=== PATIENT | female | born 1975 ===

== ENCOUNTER → 2021-10-14 09:40 | Outpatient (CLI) | payer OTHER, SELFPAY ==
[2021-10-14 18:58] LABS: Cholesterol 239 mg/dL (140-199); HDL Cholesterol 79 mg/dL (40-60); LDL Cholesterol Calculated 149 mg/dL (<100); Triglycerides 57 mg/dL (35-150); VLDL Cholesterol Calculated 11 mg/dL (2-30)
[2021-10-14 19:11] LABS: Alanine Aminotransferase 19 IU/L (<35); Albumin 4.4 g/dL (3.5-5.0); Albumin Globulin Ratio 1.5 (1.0-2.8); Alkaline Phosphatase 28 U/L (38-126); Aspartate Aminotransferase 26 IU/L (14-36); BUN Creatinine Ratio 15.3 (6-22); Bilirubin Total 0.5 mg/dL (0.2-1.3); Blood Urea Nitrogen 11 mg/dL (7-17); Calcium 9.7 mg/dL (8.4-10.2); Carbon Dioxide 26 mmol/L (22-32); Chloride 106 mmol/L (98-107); Estimated Glomerular Filt Rate > 60.0 mL/min (>60); Globulin 2.9 g/dL (1.7-4.1); Glucose 91 mg/dL (70-100); HEMOLYSIS < 15 (0-50); Potassium 4.4 mmol/L (3.4-5.1); Sodium 138 mmol/L (137-145); Total Protein 7.3 g/dL (6.3-8.2)
[2021-10-14 19:13] LABS: Add Manual Diff / Slide Review NO; Basophils Absolute Auto 0 /uL (0-100); Basophils Percent Auto 0.8 % (0-2); Eosinophils Absolute Auto 100 /uL (0-450); Eosinophils Percent Auto 3.1 % (2-4); Hematocrit 41.1 % (36-46); Lymphocytes Absolute Auto 1800 /uL (1100-4500); Lymphocytes Percent Auto 43.3 % (25-40); Mean Corpuscular HGB Conc 34.2 % (30-36); Mean Corpuscular Hemoglobin 31.5 PG (26-34); Mean Corpuscular Volume 92.1 fL (80-100); Monocytes Absolute Auto 400 /uL (0-900); Monocytes Percent Auto 9.5 % (3-14); Neutrophils Absolute Auto 1800 /uL (1500-7000); Neutrophils Percent Auto 43.3 % (50-75); Platelet Count 315 X10^3/uL (150-400); Red Blood Cell Count 4.46 X10^6/uL (4.0-5.2); Red Cell Distribution Width 12.3 % (11.6-14.8)
[2021-10-14 19:16] LABS: Vitamin D 25 Hydroxy (D3) 58.3 ng/mL (30.0-100.0)
[2021-10-14 19:27] LABS: Free T3, Triiodothyronine Free 3.81 pg/mL (2.77-5.27)
[2021-10-14 19:41] LABS: TSH w/ Reflex to FT4 0.03 uIU/mL (0.47-4.68)
[2021-10-14 20:01] LABS: Vitamin B12 780 pg/mL (239-931)
[2021-10-14 20:53] LABS: Free T4, Direct Thyroxine 0.92 ng/dL (0.78-2.19)
== END ==
PROVIDERS: PCP Family Medicine; Visit Provider Physician Assistant
DX: R53.83 Other fatigue (principal); E03.9 Hypothyroidism, unspecified; Z13.220 Encounter for screening for lipoid disorders
CPT/HCPCS: 80053; 80061; 82306; 82607; 84439; 84443; 84481; 85025

== ENCOUNTER → 2021-12-08 09:07 | Outpatient (CLI) | payer OTHER, SELFPAY ==
[2021-12-08 19:56] LABS: Add Manual Diff / Slide Review NO; Basophils Absolute Auto 0 /uL (0-100); Basophils Percent Auto 0.9 % (0-2); Eosinophils Absolute Auto 300 /uL (0-450); Eosinophils Percent Auto 6.7 % (2-4); Hematocrit 40.6 % (36-46); Hemoglobin 13.7 g/dL (12.0-16.0); Lymphocytes Absolute Auto 1600 /uL (1100-4500); Lymphocytes Percent Auto 33.9 % (25-40); Mean Corpuscular HGB Conc 33.8 % (30-36); Mean Corpuscular Volume 91.7 fL (80-100); Monocytes Absolute Auto 400 /uL (0-900); Monocytes Percent Auto 9.2 % (3-14); Neutrophils Absolute Auto 2400 /uL (1500-7000); Neutrophils Percent Auto 49.3 % (50-75); Platelet Count 341 X10^3/uL (150-400); Red Blood Cell Count 4.43 X10^6/uL (4.0-5.2); Red Cell Distribution Width 12.4 % (11.6-14.8); White Blood Cell Count 4.8 X10^3/uL (4.5-11.0)
[2021-12-08 20:05] LABS: HEMOLYSIS < 15 (0-50); Iron 82 ug/dL (37-170)
[2021-12-08 20:10] LABS: Cholesterol 218 mg/dL (140-199); HDL Cholesterol 93 mg/dL (40-60); LDL Cholesterol Calculated 113 mg/dL (<100); Triglycerides 60 mg/dL (35-150)
[2021-12-08 20:16] LABS: Percent Iron Saturation 30 % (15-50); Total Iron Binding Capacity 273 ug/dL (265-497); Transferrin 232 mg/dL (206-381)
[2021-12-08 20:24] LABS: Free T4, Direct Thyroxine 0.88 ng/dL (0.78-2.19)
[2021-12-08 20:37] LABS: TSH w/ Reflex to FT4 1.45 uIU/mL (0.47-4.68)
[2021-12-08 20:51] LABS: Ferritin 14 ng/mL (6-137)
== END ==
PROVIDERS: PCP Family Medicine; Visit Provider Physician Assistant
DX: E78.5 Hyperlipidemia, unspecified (principal); Z78.9 Other specified health status; E03.9 Hypothyroidism, unspecified
CPT/HCPCS: 80061; 82728; 83540; 83550; 84439; 84443; 84481; 85025

== ENCOUNTER → 2023-01-23 09:11 | Outpatient (CLI) | payer OTHER, SELFPAY ==
[2023-01-23 19:44] LABS: Cholesterol 233 mg/dL (140-199); HDL Cholesterol 82 mg/dL (40-60); LDL Cholesterol Calculated 141 mg/dL (<100); Triglycerides 50 mg/dL (35-150)
[2023-01-23 20:01] LABS: Free T3, Triiodothyronine Free 3.35 pg/mL (2.77-5.27); Free T4, Direct Thyroxine 1.04 ng/dL (0.78-2.19)
[2023-01-23 20:15] LABS: Thyroid Stimulating Hormone 1.26 uIU/mL (0.47-4.68)
== END ==
PROVIDERS: PCP Physician Assistant; Visit Provider Specialist
DX: E03.9 Hypothyroidism, unspecified (principal); E78.5 Hyperlipidemia, unspecified
CPT/HCPCS: 80061; 84439; 84443; 84481

== ENCOUNTER → 2024-05-08 10:34 | Outpatient (CLI) | payer OTHER, SELFPAY ==
[2024-05-08 19:36] LABS: BUN Creatinine Ratio 20.3 (6-22); Blood Urea Nitrogen 14 mg/dL (7-17); C-Reactive Protein Quant < 0.5 mg/dL (<1.0); Calcium 8.8 mg/dL (8.4-10.2); Carbon Dioxide 26 mmol/L (22-32); Chloride 102 mmol/L (98-107); Cholesterol 182 mg/dL (140-199); Estimated Glomerular Filt Rate > 60 mL/min (>60); Glucose 84 mg/dL (70-100); HDL Cholesterol 96 mg/dL (40-60); HEMOLYSIS < 15 (0-50); LDL Cholesterol Calculated 75 mg/dL (<100); Potassium 3.8 mmol/L (3.4-5.1); Sodium 135 mmol/L (137-145); Triglycerides 54 mg/dL (35-150)
[2024-05-08 19:54] LABS: Free T3, Triiodothyronine Free 3.29 pg/mL (2.77-5.27); Free T4, Direct Thyroxine 1.85 ng/dL (0.78-2.19)
[2024-05-08 20:07] LABS: Thyroid Stimulating Hormone 0.031 uIU/mL (0.47-4.68)
[2024-05-10 04:09] LABS: Apolipoprotein A1 198 mg/dL (116-209); Apolipoprotein B 79 mg/dL (<90)
[2024-05-10 10:11] LABS: Insulin Level Total 3.6 uIU/mL (2.6-24.9)
== END ==
PROVIDERS: PCP Family Medicine; Visit Provider Specialist
DX: Z00.00 Encounter for general adult medical examination without abnormal findings (principal); E78.5 Hyperlipidemia, unspecified; E03.9 Hypothyroidism, unspecified; R53.83 Other fatigue
CPT/HCPCS: 80048; 80061; 82172; 83525; 84439; 84443; 84481; 86140